=== PATIENT | male | born 1955 | race African-American/Black ===

== ENCOUNTER 2016-09-09 12:05 | Inpatient (IN) | payer OTHER ==
[2016-09-09 17:08] VITALS: BMI 27.0
--- NOTE | 2016-09-09 19:01 | HP ---
CIWA Score - CIWA Score Nausea/Vomitin-Mild Nausea/No Vomiting Muscle Tremors: 4-Moderate,w/Arms Extend Anxiety: 4-Mod. Anxious/Guarded Agitation: 4-Moderately Restless Paroxysmal Sweats: 1-Minimal Palms Moist Orientation: 1-Uncertain about Date Tacttile Disturbances: 1-Very Mild Itch/Numbness Auditory Disturbances: 0-None Visual Disturbances: 0-None Headache: 1-Very Mild CIWA-Ar Total Score: 17 Admission ROS S - HPI Chief Complaint: WITHDRAWAL SX Allergies/Adverse Reactions: Allergies Allergy/AdvReac Type Severity Reaction Status Date / Time No Known Drug Allergies Allergy Verified 09/09/16 17:04 History of Present Illness: 60 YEARS OLD MALE WITH LONG HISTORY OF ALCOHOL NICOTINE DEPENDENCE DENIES MEDICAL ISSUE HAS SCHIZOPHRENIA DENIES TAKING PSYCHOTROPIC MEDICATION IS ADMITTED TO DETOX Exam Limitations: No Limitations - Ebola screening Have you traveled outside of the country in the last 21 days: No Have you had contact with anyone from an Ebola affected area: No Have you been sick,other than usual withdrawal symptoms: No Do you have a fever: No - Review of Systems Constitutional: Chills, Changes in sleep, Weight Stable EENT: reports: No Symptoms Reported Respiratory: reports: No Symptoms reported Cardiac: reports: No Symptoms Reported GI: reports: Nausea, Poor Fluid Intake, Abdominal cramping : reports: No Symptoms Reported Musculoskeletal: reports: Other (extrapyramidal movement of the tongue and fingers) Integumentary: reports: Rash (SYSTEMIC TREATED AT [place] DISCHARGED WITH ANTIOTIC C 2 DAYS 5 MORE DAYS REMAIN) Neuro: reports: Tremors Endocrine: reports: No Symptoms Reported Hematology: reports: No Symptoms Reported Psychiatric: reports: Judgement Intact, Anxious, Depressed Other Systems: Reviewed and Negative Patient History - Patient Medical History Hx Anemia: No Hx Asthma: No Hx Chronic Obstructive Pulmonary Disease (COPD): No Hx Cancer: No Hx Cardiac Disorders: No Hx Congestive Heart Failure: No Hx Hypertension: Yes (BP: 165/95) Hx Hypercholesterolemia: Yes Hx Pacemaker: No HX Cerebrovascular Accident: No Hx Seizures: No Hx Dementia: No Hx Diabetes: No Hx Gastrointestinal Disorders: No Hx Liver Disease: No Hx Genitourinary Disorders: No Hx Sexually Transmitted Disorders: No Hx Renal Disease (ESRD): No Hx Thyroid Disease: No Hx Human Immunodeficiency Virus (HIV): No Hx Hepatitis C: No Hx Depression: No Hx Suicide Attempt: No Hx Bipolar Disorder: No Hx Schizophrenia: Yes - Patient Surgical History Past Surgical History: Yes Hx Neurologic Surgery: No Hx Cataract Extraction: No Hx Cardiac Surgery: No Hx Lung Surgery: No Hx Breast Surgery: No Hx Breast Biopsy: No Hx Abdominal Surgery: No Hx Appendectomy: No Hx Cholecystectomy: No Hx Genitourinary Surgery: No Hx Orthopedic Surgery: No Other Surgical History: head trauma 20 years ago Anesthesia Reaction: No - PPD History Previous Implant?: Yes Documented Results: Negative w/o proof Implanted On Prior R Admission?: No PPD to be Administered?: Yes - Smoking Cessation Smoking history: Never smoked Have you smoked in the past 12 months: No Hx Chewing Tobacco Use: No Initiated information on smoking cessation: No - Substance & Tx. History Hx Alcohol Use: Yes Hx Substance Use: No Substance Use Type: Alcohol Hx Substance Use Treatment: Yes - Substances Abused Alcohol Route: Oral Frequency: Daily Amount used: Liquor 3 pints volka Age of first use: 15 Date of Last Use: 09/08/16 Family Disease History - Family Disease History Family Disease History: Other: Father (no contact), Mother (no contact) Other Family History: only child Admission Physical Exam S - Vital Signs Vital Signs: Vital Signs - 24 hr 09/09/16 17:06 Temperature 97.1 F L Pulse Rate 77 Respiratory 16 Rate Blood Pressure 165/95 - Physical General Appearance: Yes: Appropriately Dressed, Mild Distress, Tremorous, Irritable, Sweating, Anxious HEENTM: Yes: Hearing grossly Normal, Normal ENT Inspection, Normocephalic, Normal Voice Respiratory: Yes: Chest Non-Tender, Lungs Clear, Normal Breath Sounds, No Respiratory Distress, No Accessory Muscle Use Neck: Yes: Supple, Trachea in good position Breast: Yes: Breasts Symetrical Cardiology: Yes: Regular Rhythm, Regular Rate, S1, S2 Abdominal: Yes: Non Tender, Soft Genitourinary: Yes: Within Normal Limits Back: Yes: Normal Inspection Musculoskeletal: Yes: full range of Motion, Gait Steady Extremities: Yes: Normal Inspection, Normal Range of Motion, Non-Tender, Tremors , Other (involunteer) Neurological: Yes: Alert, Motor Strength 5/5, Normal Response, Depressed Affect Integumentary: Yes: Warm Lymphatic: Yes: Within Normal Limits - Diagnostic (1) Alcohol dependence with uncomplicated withdrawal Current Visit: Yes Status: Acute (2) Extrapyramidal and movement disorder Current Visit: Yes Status: Chronic (3) Hyperlipidemia Current Visit: Yes Status: Chronic Qualifiers: Hyperlipidemia type: pure hypercholesterolemia Qualified Code(s): E78.00 - Pure hypercholesterolemia, unspecified; E78.0 - Pure hypercholesterolemia (4) Hypertension Current Visit: Yes Status: Chronic Qualifiers: Hypertension type: essential hypertension Qualified Code(s): I10 - Essential (primary) hypertension (5) Schizophrenia Current Visit: Yes Status: Suspected Qualifiers: Schizophrenia type: schizophreniform disorder Qualified Code(s): F20.81 - Schizophreniform disorder (6) Severe head trauma Current Visit: Yes Status: Chronic Qualifiers: Encounter type: sequela Qualified Code(s): S09.90XS - Unspecified injury of head, sequela Comment: head trauma x 40+ years ago frequent urination Cleared for Admission [facility] - Detox or Rehab [facility] Level of Care: Medically Managed Detox Regimen/Protocol: Librium S Breath Alcohol Content Breath Alcohol Content: 0 Urine Drug Screen - Results Drug Screen Negative: Yes
[2016-09-09] MEDS ORDERED: hydrOXYzine PAMOATE 50 MG CAPSULE (FP) PO PRN (21:17)
[2016-09-09] MEDS ORDERED: IBUPROFEN 400 MG TABLET (FP) PO PRN (21:17)
[2016-09-09] MEDS ORDERED: chlordiazePOXIDE HCL 25 MG CAPSULE PO PRN (21:17)
[2016-09-09] MEDS ORDERED: MAGNESIUM HYDROX 2400MG/30ML ORAL SUSPENSION 30 ML CUP PO PRN (21:17)
[2016-09-09] MEDS ORDERED: MAGNESIUM CITRATE 300 ML BOTTLE PO PRN (21:17)
[2016-09-09] MEDS ORDERED: ACETAMINOPHEN 325 MG TABLET (FP) PO PRN (21:17)
[2016-09-09] MEDS ORDERED: guaiFENesin/D-METHORPHAN HB 10 ML UNIT-DOSE CUPS PO PRN (21:17)
[2016-09-09] MEDS ORDERED: MAG HYDROX/AL HYDROX/SIMETH 30 ML UNIT-DOSE CUP PO PRN (21:17)
[2016-09-09] MEDS ORDERED: chlordiazePOXIDE HCL 25 MG CAPSULE PO ONE (21:17)
[2016-09-09] MEDS ORDERED: MENTHOL/PHENOL 1 EACH UD MM PRN (21:17)
[2016-09-09] MEDS ORDERED: LOPERAMIDE HCL 2 MG CAPSULE PO PRN (21:17)
[2016-09-09] MEDS ORDERED: P-EPHED 60MG/TRIPROLIDI 2.5MG TABLET PO PRN (21:17)
[2016-09-09] MEDS ORDERED: cloNIDine HCL 0.1 MG TABLET PO PRN (21:51)
[2016-09-09] MEDS ORDERED: CLOZAPINE 150 MG PO SCH (22:00)
[2016-09-09] MEDS ORDERED: ATORVASTATIN CA 20 MG TABLET (FP) PO SCH (22:00)
[2016-09-09] MEDS: THIAMINE HCL 100 MG TABLET (FP) PO SCH (22:22)
[2016-09-09] MEDS: chlordiazePOXIDE HCL 25 MG CAPSULE PO SCH (22:22)
[2016-09-09] MEDS: diphenhydrAMINE HCL 50 MG CAPSULE PO PRN (22:23)
[2016-09-09 23:24] LABS: URINE APPEARANCE SLCLOUDY; URINE BILIRUBIN NEGATIVE (NEGATIVE); URINE BLOOD NEGATIVE (NEGATIVE); URINE COLOR YELLOW; URINE GLUCOSE (UA) NEGATIVE (NEGATIVE); URINE KETONE NEGATIVE (NEGATIVE); URINE LEUK ESTERASE NEGATIVE (NEGATIVE); URINE NITRITE NEGATIVE (NEGATIVE); URINE PROTEIN NEGATIVE (NEGATIVE); URINE UROBILINOGEN NEGATIVE E.U./dl (0.2-1.0)
[2016-09-10] MEDS: chlordiazePOXIDE HCL 25 MG CAPSULE PO SCH ×4 (05:56→22:06)
--- NOTE | 2016-09-10 09:36 | CONSULT ---
[facility] Psychiatric Consult - Data Date of interview: 09/10/16 Admission source: [facility] Identifying data: This is 60 years old male with history of Schizophrenia, unclearpast psychiatric hospitalization history, intoxicated with Alcohol Substance Abuse History: - Smoking Cessation. Smoking history: Never smoked. Have you smoked in the past 12 months: No. Hx Chewing Tobacco Use: No. Initiated information on smoking cessation: No. - Substance & Tx. History. Hx Alcohol Use: Yes. Hx Substance Use: No. Substance Use Type: Alcohol. Hx Substance Use Treatment: Yes. - Substances Abused. Alcohol. Route: Oral. Frequency: Daily. Amount used: Liquor 3 pints volka. Age of first use: 15. Date of Last Use: 09/08/16 Medical History: HTN, Hyperlipidemia, history of Head Injury Psychiatric History: As per chart patient suffers paranoid Schizophrenia, currentlu=y on Clozarill on 100gm or 150mg as per patient, patient"s mental capacity is not enouph to be evaluated at current time, detox department is not settled to manage patoient with Schizophrenia on Clozaril, patient does not know who is his primary psychietrist and no contacting information provided to take any collateral information regarding this case. Physical/Sexual Abuse/Trauma History: Denies Additional Comment: Haldol 1mg po prn q4 for agitation and anxiety Mental Status Exam - Mental Status Exam Alert and Oriented to: Person Cognitive Function: Impaired Patient Appearance: Unkempt Mood: Sad Affect: Constricted Patient Behavior: Resitive to Care Speech Pattern: Delayed Voice Loudness: Moderately Soft/Quiet Thought Process: Circumstantial Thought Disorder: Present Hallucinations: Denies Suicidal Ideation: Denies Homicidal Ideation: Denies Insight/Judgement: Poor Sleep: Fair Appetite: Fair Muscle strength/Tone: Mild Hypotonicity Gait/Station: Shuffling Additional Comments: Observation. Detox Unit Care Protocol. Haldol 1mg po q4 for agitation and psychosis Psychiatric Findings - Problem List ([place] 1, 2,3) (1) Alcohol dependence with uncomplicated withdrawal Current Visit: Yes Status: Acute (2) Paranoid schizophrenia Current Visit: Yes Status: Acute - Initial Treatment Plan Initial Treatment Plan: Observation. Detox Unit Care Protocol. Haldol 1mg po q4 for agitation and psychosis
[2016-09-10 09:49] LABS: MCH 28.7 pg (25.7-33.7); MCHC 32.4 g/dl (32.0-35.9); MEAN CELL VOLUME 88.5 fl (80-96); MEAN PLT VOLUME 9.5 fl (7.5-11.1); PLATELET COUNT 204 K/MM3 (134-434); RDW 13.7 % (11.9-15.9); WHITE BLOOD COUNT 6.7 K/mm3 (4.0-10.0)
--- NOTE | 2016-09-10 10:02 | PN ---
[facility] CIWA - CIWA Score Nausea/Vomitin-No Nausea/No Vomiting Muscle Tremors: 4-Moderate,w/Arms Extend Anxiety: 4-Mod. Anxious/Guarded Agitation: 4-Moderately Restless Paroxysmal Sweats: 1-Minimal Palms Moist Orientation: 0-Oriented Tacttile Disturbances: 3-Moderate Itch/Numb/Burn Auditory Disturbances: 0-None Visual Disturbances: 0-None Headache: 0-None Present CIWA-Ar Total Score: 16 [facility] Progress Note (SOAP) Subjective: ANXIETY,TREMORS. Objective: 09/10/16 10:01 Vital Signs Temperature 97.4 F L 09/10/16 09:20 Pulse Rate 89 09/10/16 09:20 Respiratory Rate 18 09/10/16 09:20 Blood Pressure 161/98 09/10/16 09:20 O2 Sat by Pulse Oximetry (%) Laboratory Last Values WBC 6.7 K/mm3 (4.0-10.0) 09/10/16 06:00 RBC 4.67 M/mm3 (4.00-5.60) 09/10/16 06:00 Hgb 13.4 GM/dL (11.7-16.9) 09/10/16 06:00 Hct 41.3 % (35.4-49) 09/10/16 06:00 MCV 88.5 fl (80-96) 09/10/16 06:00 MCHC 32.4 g/dl (32.0-35.9) 09/10/16 06:00 RDW 13.7 % (11.9-15.9) 09/10/16 06:00 Plt Count 204 K/MM3 (134-434) 09/10/16 06:00 MPV 9.5 fl (7.5-11.1) 09/10/16 06:00 Urine Color Yellow 09/09/16 23:10 Urine Appearance Slcloudy 09/09/16 23:10 Urine pH 8.0 (5.0-8.0) 09/09/16 23:10 Urine Protein Negative (NEGATIVE) 09/09/16 23:10 Urine Glucose (UA) Negative (NEGATIVE) 09/09/16 23:10 Urine Ketones Negative (NEGATIVE) 09/09/16 23:10 Urine Blood Negative (NEGATIVE) 09/09/16 23:10 Urine Nitrite Negative (NEGATIVE) 09/09/16 23:10 Urine Bilirubin Negative (NEGATIVE) 09/09/16 23:10 Urine Urobilinogen Negative E.U./dl (0.2-1.0) 09/09/16 23:10 Ur Leukocyte Esterase Negative (NEGATIVE) 09/09/16 23:10 Assessment: 09/10/16 10:01 WITHDRAWAL SX Plan: CONTINUE DETOX
[2016-09-10] MEDS: PRENATAL VITAMINS W/ FOLIC ACID TABLET (FP) PO SCH (10:10)
[2016-09-10] MEDS ORDERED: cloNIDine HCL 0.1 MG TABLET PO SCH (10:15)
[2016-09-10 10:24] LABS: ALBUMIN 3.3 g/dl (3.4-5.0); ALK PHOS 79 U/L (45-117); ANION GAP 9 (8-16); BILIRUBIN,TOTAL 0.6 mg/dL (0.2-1.0); CALCIUM 8.7 mg/dL (8.5-10.1); CO2 26 mmol/L (21-32); COCKROFT - GAULT 90.83; GLUCOSE,RANDOM 137 mg/dL (74-106); SGOT/AST 31 U/L (15-37); SGPT/ALT 24 U/L (12-78); TOT PROT 7.3 g/dl (6.4-8.2)
[2016-09-10] MEDS: TOPIRAMATE 25 MG TABLET (FP) PO SCH (10:59)
[2016-09-10] MEDS: cloNIDine HCL 0.1 MG TABLET PO SCH ×2 (11:00→22:07)
[2016-09-10] MEDS ORDERED: HALOPERIDOL 1 MG TABLET (FP) PO PRN (12:06)
--- NOTE | 2016-09-10 13:14 | EKG ---
Test Reason : Blood Pressure : / mmHG Vent. Rate : 080 BPM Atrial Rate : 080 BPM P-R Int : 136 ms QRS Dur : 078 ms QT Int : 372 ms P-R-T Axes : 067 -01 012 degrees QTc Int : 429 ms NORMAL SINUS RHYTHM POSSIBLE LEFT ATRIAL ENLARGEMENT CANNOT RULE OUT INFERIOR INFARCT , AGE UNDETERMINED ABNORMAL ECG NO PREVIOUS ECGS AVAILABLE Confirmed by LOCO POWELL MD ([id number]) on 09/10/2016 1:13:45 PM Referred By: Confirmed By:LOCO POWELL MD
[2016-09-10] MEDS ORDERED: CLOZAPINE 100 MG SL SCH (16:30)
[2016-09-10] MEDS: THIAMINE HCL 100 MG TABLET (FP) PO SCH (22:06)
[2016-09-10] MEDS: ATORVASTATIN CA 20 MG TABLET (FP) PO SCH (22:07)
[2016-09-10] MEDS: diphenhydrAMINE HCL 50 MG CAPSULE PO PRN (22:07)
[2016-09-11] MEDS: chlordiazePOXIDE HCL 25 MG CAPSULE PO SCH ×3 (05:51→16:44)
--- NOTE | 2016-09-11 09:15 | PN ---
[facility] CIWA - CIWA Score Nausea/Vomitin-No Nausea/No Vomiting Muscle Tremors: 4-Moderate,w/Arms Extend Anxiety: 4-Mod. Anxious/Guarded Agitation: 4-Moderately Restless Paroxysmal Sweats: 1-Minimal Palms Moist Orientation: 0-Oriented Tacttile Disturbances: 3-Moderate Itch/Numb/Burn Auditory Disturbances: 0-None Visual Disturbances: 0-None Headache: 0-None Present CIWA-Ar Total Score: 16 S Progress Note (SOAP) Subjective: TREMORS,SWEATS,ANXIETY. Objective: 09/11/16 09:14 Vital Signs Temperature 96.9 F L 09/11/16 06:19 Pulse Rate 96 H 09/11/16 06:19 Respiratory Rate 16 09/11/16 06:19 Blood Pressure 107/74 09/11/16 06:19 O2 Sat by Pulse Oximetry (%) Laboratory Last Values WBC 6.7 K/mm3 (4.0-10.0) 09/10/16 06:00 RBC 4.67 M/mm3 (4.00-5.60) 09/10/16 06:00 Hgb 13.4 GM/dL (11.7-16.9) 09/10/16 06:00 Hct 41.3 % (35.4-49) 09/10/16 06:00 MCV 88.5 fl (80-96) 09/10/16 06:00 MCHC 32.4 g/dl (32.0-35.9) 09/10/16 06:00 RDW 13.7 % (11.9-15.9) 09/10/16 06:00 Plt Count 204 K/MM3 (134-434) 09/10/16 06:00 MPV 9.5 fl (7.5-11.1) 09/10/16 06:00 Sodium 139 mmol/L (136-145) 09/10/16 06:00 Potassium 3.8 mmol/L (3.5-5.1) 09/10/16 06:00 Chloride 104 mmol/L (98-107) 09/10/16 06:00 Carbon Dioxide 26 mmol/L (21-32) 09/10/16 06:00 Anion Gap 9 (8-16) 09/10/16 06:00 BUN 9 mg/dL (7-18) 09/10/16 06:00 Creatinine 1.0 mg/dL (0.7-1.3) 09/10/16 06:00 Creat Clearance w eGFR > 60 (>60) 09/10/16 06:00 Random Glucose 137 mg/dL (74-106) H 09/10/16 06:00 Calcium 8.7 mg/dL (8.5-10.1) 09/10/16 06:00 Total Bilirubin 0.6 mg/dL (0.2-1.0) 09/10/16 06:00 AST 31 U/L (15-37) 09/10/16 06:00 ALT 24 U/L (12-78) 09/10/16 06:00 Alkaline Phosphatase 79 U/L (45-117) 09/10/16 06:00 Total Protein 7.3 g/dl (6.4-8.2) 09/10/16 06:00 Albumin 3.3 g/dl (3.4-5.0) L 09/10/16 06:00 Urine Color Yellow 09/09/16 23:10 Urine Appearance Slcloudy 09/09/16 23:10 Urine pH 8.0 (5.0-8.0) 09/09/16 23:10 Ur Specific [place] 1.015 (1.005-1.025) 09/09/16 23:10 Urine Protein Negative (NEGATIVE) 09/09/16 23:10 Urine Glucose (UA) Negative (NEGATIVE) 09/09/16 23:10 Urine Ketones Negative (NEGATIVE) 09/09/16 23:10 Urine Blood Negative (NEGATIVE) 09/09/16 23:10 Urine Nitrite Negative (NEGATIVE) 09/09/16 23:10 Urine Bilirubin Negative (NEGATIVE) 09/09/16 23:10 Urine Urobilinogen Negative E.U./dl (0.2-1.0) 09/09/16 23:10 Ur Leukocyte Esterase Negative (NEGATIVE) 09/09/16 23:10 RPR Titer Nonreactive (NONREACTIVE) 09/10/16 06:00 Assessment: 09/11/16 09:14 WITHDRAWAL SX Plan: CONTINUE DETOX
[2016-09-11] MEDS: TOPIRAMATE 25 MG TABLET (FP) PO SCH (10:06)
[2016-09-11] MEDS: PRENATAL VITAMINS W/ FOLIC ACID TABLET (FP) PO SCH (10:06)
[2016-09-11] MEDS: cloNIDine HCL 0.1 MG TABLET PO SCH ×2 (10:06→22:09)
[2016-09-11] MEDS: diphenhydrAMINE HCL 50 MG CAPSULE PO PRN (22:09)
[2016-09-11] MEDS: ATORVASTATIN CA 20 MG TABLET (FP) PO SCH (22:09)
[2016-09-11] MEDS: THIAMINE HCL 100 MG TABLET (FP) PO SCH (22:09)
[2016-09-11] MEDS: chlordiazePOXIDE 5 MG CAPSULE PO SCH (22:10)
[2016-09-12] MEDS: chlordiazePOXIDE 5 MG CAPSULE PO SCH ×3 (06:21→17:42)
[2016-09-12] MEDS: cloNIDine HCL 0.1 MG TABLET PO SCH ×2 (11:35→23:02)
[2016-09-12] MEDS: PRENATAL VITAMINS W/ FOLIC ACID TABLET (FP) PO SCH (11:36)
[2016-09-12] MEDS: TOPIRAMATE 25 MG TABLET (FP) PO SCH (11:36)
--- NOTE | 2016-09-12 12:20 | PN ---
S Progress Note (SOAP) Subjective: sweaats, anxiety, interrupted sleep Objective: 09/12/16 12:19 Vital Signs - 8 hr 09/12/16 10:23 Temperature 97.2 F L Pulse Rate 76 Respiratory 18 Rate Blood Pressure 121/84 Laboratory Last Values WBC 6.7 K/mm3 (4.0-10.0) 09/10/16 06:00 RBC 4.67 M/mm3 (4.00-5.60) 09/10/16 06:00 Hgb 13.4 GM/dL (11.7-16.9) 09/10/16 06:00 Hct 41.3 % (35.4-49) 09/10/16 06:00 MCV 88.5 fl (80-96) 09/10/16 06:00 MCHC 32.4 g/dl (32.0-35.9) 09/10/16 06:00 RDW 13.7 % (11.9-15.9) 09/10/16 06:00 Plt Count 204 K/MM3 (134-434) 09/10/16 06:00 MPV 9.5 fl (7.5-11.1) 09/10/16 06:00 Sodium 139 mmol/L (136-145) 09/10/16 06:00 Potassium 3.8 mmol/L (3.5-5.1) 09/10/16 06:00 Chloride 104 mmol/L (98-107) 09/10/16 06:00 Carbon Dioxide 26 mmol/L (21-32) 09/10/16 06:00 Anion Gap 9 (8-16) 09/10/16 06:00 BUN 9 mg/dL (7-18) 09/10/16 06:00 Creatinine 1.0 mg/dL (0.7-1.3) 09/10/16 06:00 Creat Clearance w eGFR > 60 (>60) 09/10/16 06:00 Random Glucose 137 mg/dL (74-106) H 09/10/16 06:00 Calcium 8.7 mg/dL (8.5-10.1) 09/10/16 06:00 Total Bilirubin 0.6 mg/dL (0.2-1.0) 09/10/16 06:00 AST 31 U/L (15-37) 09/10/16 06:00 ALT 24 U/L (12-78) 09/10/16 06:00 Alkaline Phosphatase 79 U/L (45-117) 09/10/16 06:00 Total Protein 7.3 g/dl (6.4-8.2) 09/10/16 06:00 Albumin 3.3 g/dl (3.4-5.0) L 09/10/16 06:00 Urine Color Yellow 09/09/16 23:10 Urine Appearance Slcloudy 09/09/16 23:10 Urine pH 8.0 (5.0-8.0) 09/09/16 23:10 Ur Specific [place] 1.015 (1.005-1.025) 09/09/16 23:10 Urine Protein Negative (NEGATIVE) 09/09/16 23:10 Urine Glucose (UA) Negative (NEGATIVE) 09/09/16 23:10 Urine Ketones Negative (NEGATIVE) 09/09/16 23:10 Urine Blood Negative (NEGATIVE) 09/09/16 23:10 Urine Nitrite Negative (NEGATIVE) 09/09/16 23:10 Urine Bilirubin Negative (NEGATIVE) 09/09/16 23:10 Urine Urobilinogen Negative E.U./dl (0.2-1.0) 09/09/16 23:10 Ur Leukocyte Esterase Negative (NEGATIVE) 09/09/16 23:10 RPR Titer Nonreactive (NONREACTIVE) 09/10/16 06:00 labs noted Assessment: 09/12/16 12:19 withdrawal sx Plan: continue detox
[2016-09-12] MEDS: chlordiazePOXIDE HCL 10 MG CAPSULE PO SCH (23:02)
[2016-09-12] MEDS: THIAMINE HCL 100 MG TABLET (FP) PO SCH (23:02)
[2016-09-12] MEDS: ATORVASTATIN CA 20 MG TABLET (FP) PO SCH (23:02)
[2016-09-13] MEDS: chlordiazePOXIDE HCL 10 MG CAPSULE PO SCH (06:10)
[2016-09-13 06:28] VITALS: BP 128/87; PULSE 83; TEMP 96.5
--- NOTE | 2016-09-13 12:04 | DS ---
[facility] Detox Discharge Summary Admission Date: 09/09/16 Discharge Date: 09/13/16 - History Present History: Alcohol Dependence Pertinent Past History: HTN HLD Vitamin D deficiency BPH - Physical Exam Results Vital Signs: Vital Signs Temperature 96.5 F L 09/13/16 06:27 Pulse Rate 83 09/13/16 06:27 Respiratory Rate 16 09/13/16 06:27 Blood Pressure 128/87 09/13/16 06:27 O2 Sat by Pulse Oximetry (%) Pertinent Admission Physical Exam Findings: Withdrawal symptoms Laboratory Tests 09/09/16 09/10/16 09/10/16 23:10 06:00 06:00 WBC 6.7 RBC 4.67 Hgb 13.4 Hct 41.3 MCV 88.5 MCHC 32.4 RDW 13.7 Plt Count 204 MPV 9.5 Sodium 139 Potassium 3.8 Chloride 104 Carbon Dioxide 26 Anion Gap 9 BUN 9 Creatinine 1.0 Creat Clearance w eGFR > 60 Random Glucose 137 H Calcium 8.7 Total Bilirubin 0.6 AST 31 ALT 24 Alkaline Phosphatase 79 Total Protein 7.3 Albumin 3.3 L Urine Color Yellow Urine Appearance Slcloudy Urine pH 8.0 Ur Specific [place] 1.015 Urine Protein Negative Urine Glucose (UA) Negative Urine Ketones Negative Urine Blood Negative Urine Nitrite Negative Urine Bilirubin Negative Urine Urobilinogen Negative Ur Leukocyte Esterase Negative RPR Titer 09/10/16 06:00 WBC RBC Hgb Hct MCV MCHC RDW Plt Count MPV Sodium Potassium Chloride Carbon Dioxide Anion Gap BUN Creatinine Creat Clearance w eGFR Random Glucose Calcium Total Bilirubin AST ALT Alkaline Phosphatase Total Protein Albumin Urine Color Urine Appearance Urine pH Ur Specific [place] Urine Protein Urine Glucose (UA) Urine Ketones Urine Blood Urine Nitrite Urine Bilirubin Urine Urobilinogen Ur Leukocyte Esterase RPR Titer Nonreactive Labs noted - Treatment Hospital Course: Detox Protocol Followed, Detoxed Safely, Responded well, Discharged Condition Good - Medication Discharge Medications: Ambulatory Orders Atorvastatin Ca [Lipitor] 20 mg PO HS 09/09/16 Clozapine [Fazaclo] 100 mg SL ACDIN 09/09/16 Clozapine [Fazaclo] 150 mg PO HS 09/09/16 Topiramate [Topamax] 50 mg PO HS 09/09/16 - Diagnosis (1) Alcohol dependence with uncomplicated withdrawal Status: Acute (2) Paranoid schizophrenia Status: Chronic (3) Hyperlipidemia Status: Chronic Qualifiers: Hyperlipidemia type: pure hypercholesterolemia Qualified Code(s): E78.00 - Pure hypercholesterolemia, unspecified; E78.0 - Pure hypercholesterolemia (4) Hypertension Status: Chronic Qualifiers: Hypertension type: essential hypertension Qualified Code(s): I10 - Essential (primary) hypertension (5) Vitamin D deficiency, unspecified Status: Acute (6) BPH (benign prostatic hyperplasia) Status: Chronic - AMA Did Patient Leave Against Medical Advice: No
[2016-09-15] MEDS ORDERED: ERGOCALCIFEROL (VITAMIN D2) 50,000 UNIT CAPSULE (FP) PO SCH (10:00)
== END 2016-09-13 09:30 | disposition home or self-care (01) | DRG 775 ==
LOC: YASAS 12:05 → Y3N 17:41
PROVIDERS: ADMIT Internal Medicine; ATTEND Internal Medicine
PROC: HZ2ZZZZ Detoxification Services for Substance Abuse Treatment (ICD-10-PCS; principal; 2016-09-09)
DX: F10.230 Alcohol dependence with withdrawal, uncomplicated (principal); F20.0 Paranoid schizophrenia; I10 Essential (primary) hypertension; E78.5 Hyperlipidemia, unspecified; E53.8 Deficiency of other specified B group vitamins; N40.0 Benign prostatic hyperplasia without lower urinary tract symptoms; G25.9 Extrapyramidal and movement disorder, unspecified
CPT/HCPCS: 36415; 80053; 81003; 85027; 86593; 93005; 93010

== ENCOUNTER 2021-02-21 15:04 | Inpatient (IN) | payer OTHER ==
[2021-02-21] MEDS ORDERED: guaiFENesin 200 MG/10 ML 10 ML UNIT-DOSE CUPS PO PRN (18:03)
[2021-02-21] MEDS ORDERED: P-EPHED 60MG/TRIPROLIDI 2.5MG TABLET PO PRN (18:03)
[2021-02-21] MEDS ORDERED: MAGNESIUM HYDROX 2400MG/30ML ORAL SUSPENSION 30 ML CUP PO PRN (18:03)
[2021-02-21] MEDS ORDERED: NICOTINE 10 MG CARTRIDGE (INHALER) IH PRN (18:03)
[2021-02-21] MEDS ORDERED: IBUPROFEN 400 MG TABLET (FP) PO PRN (18:03)
[2021-02-21] MEDS ORDERED: MAG HYDROX/AL HYDROX/SIMETH 30 ML UNIT-DOSE CUP PO PRN (18:03)
[2021-02-21] MEDS ORDERED: ACETAMINOPHEN 325 MG TABLET (FP) PO PRN (18:03)
[2021-02-21] MEDS ORDERED: LOPERAMIDE HCL 2 MG CAPSULE PO PRN (18:03)
[2021-02-21] MEDS ORDERED: MAGNESIUM CITRATE 300 ML BOTTLE PO PRN (18:03)
[2021-02-21] MEDS ORDERED: TUBERCULIN PPD 5 TU/0.1ML VIAL ID ONE (20:22)
[2021-02-21] MEDS: MELATONIN 5 MG TABLETS PO SCH (21:22)
[2021-02-21] MEDS: THIAMINE HCL 100 MG TABLET (FP) PO SCH (21:22)
[2021-02-22] MEDS: PRENATAL VITAMINS W/ FOLIC ACID TABLET (FP) PO SCH (09:53)
[2021-02-22 11:06] LABS: URINE APPEARANCE CLEAR; URINE BILIRUBIN NEGATIVE (NEGATIVE); URINE COLOR YELLOW; URINE GLUCOSE (UA) NEGATIVE (NEGATIVE); URINE KETONE NEGATIVE (NEGATIVE); URINE LEUK ESTERASE NEGATIVE (NEGATIVE); URINE NITRITE NEGATIVE (NEGATIVE); URINE PROTEIN NEGATIVE (NEGATIVE); URINE UROBILINOGEN 0.2 mg/dL (0.2-1.0)
[2021-02-22] MEDS: THIAMINE HCL 100 MG TABLET (FP) PO SCH (21:48)
[2021-02-22] MEDS: MELATONIN 5 MG TABLETS PO SCH (21:48)
[2021-02-23] MEDS: PRENATAL VITAMINS W/ FOLIC ACID TABLET (FP) PO SCH (09:36)
[2021-02-23] MEDS: MELATONIN 5 MG TABLETS PO SCH (21:56)
[2021-02-23] MEDS: THIAMINE HCL 100 MG TABLET (FP) PO SCH (21:57)
[2021-02-24 07:24] VITALS: BP 109/62; PULSE 75; TEMP 97.7
[2021-02-24] MEDS: PRENATAL VITAMINS W/ FOLIC ACID TABLET (FP) PO SCH (09:44)
[2021-02-24 11:41] LABS: HEMATOCRIT 34.5 % (35.4-49); HEMOGLOBIN 11.9 GM/dL (11.7-16.9); MCH 29.5 pg (25.7-33.7); MCHC 34.4 g/dl (32.0-35.9); MEAN PLT VOLUME 8.1 fl (7.5-11.1); PLATELET COUNT 235 10^3/uL (134-434); RBC 4.01 M/mm3 (4.00-5.60); RDW 13.6 % (11.9-15.9); WHITE BLOOD COUNT 6.3 K/mm3 (4.0-10.0)
[2021-02-24 11:48] LABS: CALCIUM 8.8 mg/dL (8.5-10.1)
[2021-02-24 11:49] LABS: ALBUMIN 2.8 g/dl (3.4-5.0); BLOOD UREA NITROGEN 6.6 mg/dL (7-18); CREATININE 0.8 mg/dL (0.55-1.3)
[2021-02-24 11:51] LABS: BILIRUBIN,TOTAL 0.2 mg/dL (0.2-1); TOT PROT 6.5 g/dl (6.4-8.2)
[2021-02-24 12:07] LABS: SYPHILIS W/ RPR CONF NON-REACTIVE (NONREACTIVE)
== END 2021-02-24 13:12 | disposition home or self-care (01) | DRG 772 ==
LOC: YASAS 15:04 → Y3W 19:26
PROVIDERS: ADMIT Allergy & Immunology; ATTEND Allergy & Immunology
PROC: HZ42ZZZ Group Counseling for Substance Abuse Treatment, Cognitive-Behavioral (ICD-10-PCS; principal; 2021-02-21)
DX: F10.20 Alcohol dependence, uncomplicated (principal); F14.20 Cocaine dependence, uncomplicated; F20.81 Schizophreniform disorder; E55.9 Vitamin D deficiency, unspecified; E78.5 Hyperlipidemia, unspecified; I10 Essential (primary) hypertension; N40.0 Benign prostatic hyperplasia without lower urinary tract symptoms; Z56.0 Unemployment, unspecified
CPT/HCPCS: 36415; 80053; 81003; 85027; 86780; 86803; C9803; U0003; U0005